=== PATIENT | female | born 2000 | race Caucasian/White ===

== ENCOUNTER 2020-08-05 12:48 | Emergency (ER) | payer OTHER, MEDICAID ==
[~2020-08-05] VITALS: Ht 162.6 cm; Wt 63.5 kg
[2020-08-05] MEDS ORDERED: ACETIC ACID15 ML OTIC (14:37)
[2020-08-05 14:43] VITALS: BP 116/72
== END 2020-08-05 14:43 | disposition home or self-care (01) ==
LOC: M.ERS 12:48
DX: H61.21 Impacted cerumen, right ear (principal)

== ENCOUNTER 2020-10-15 14:48 | Emergency (ER) | payer OTHER, MEDICAID ==
[~2020-10-15] VITALS: Ht 162.6 cm; Wt 61.2 kg
[~2020-10-15 14:48] MED LIST: ACETIC ACID15 ML OTIC
[2020-10-15 15:32] LABS: ABSOLUTE LYMPHOCYTES 0.9 thou/uL (0.8-5.3); ABSOLUTE MONOCYTES 0.3 thou/uL (0.0-1.2); ABSOLUTE NEUTROPHILS 6.7 thou/uL (1.6-8.1); BASOPHILS 0.4 %; EOSINOPHILS 0.1 %; HEMATOCRIT 40.6 % (37.0-47.0); HEMOGLOBIN 13.4 gm/dL (12.0-15.0); MCH 28.8 pg (26.0-34.0); MCHC 33.1 g/dL (28.0-37.0); MONOCYTES 4.3 %; MPV 8.7 fl. (7.2-11.1); NUCLEATED RBCS 0 /100WBC; PLATELET COUNT* 271 thou/uL (150-400); POLYS 84.2 %; RBC 4.66 mil/uL (4.20-5.00); RDW-CV 14.6 % (10.5-14.5); WBC 7.9 thou/uL (4.0-11.0)
[2020-10-15 15:47] LABS: CALCIUM 8.6 mg/dL (8.5-10.1); CREATININE 0.9 mg/dL (0.6-1.3)
[2020-10-15 15:51] LABS: ALBUMIN 4.3 g/dL (3.4-5.0); TOTAL BILIRUBIN 1.4 mg/dL (<0.1-1.0)
[2020-10-15 15:55] LABS: POTASSIUM 2.9 mmol/L (3.5-5.1)
[2020-10-15 16:07] LABS: URINE BILIRUBIN NEGATIVE (Negative); URINE BLOOD NEGATIVE (Negative); URINE CLARITY CLEAR; URINE COLOR YELLOW; URINE GLUCOSE-RANDOM NEGATIVE (Negative); URINE KETONES 1+ (Negative); URINE LEUKOCYTES-REFLEX NEGATIVE (Negative); URINE NITRITE-REFLEX NEGATIVE (Negative); URINE PROTEIN NEGATIVE (Negative); URINE UROBILINOGEN 0.2 E.U./dl (0.2-1.0)
[2020-10-15 16:16] LABS: AMP/METHAMP Negative (Negative); BARBITURATES Negative (Negative); BENZODIAZEPINES Negative (Negative); COCAINE Negative (Negative); METHADONE Negative (Negative); OPIATES Negative (Negative); PCP Negative (Negative); THC POSITIVE (Negative)
[2020-10-15] MEDS ORDERED: PHENERGAN 25 MG25 M1 PO (16:51)
[2020-10-15] MEDS ORDERED: PROMS25 WY RECTAL (16:51)
[2020-10-15 17:06] VITALS: BP 131/71
== END 2020-10-15 16:55 | disposition home or self-care (01) ==
LOC: M.ERS 14:48
PROVIDERS: Nurse Practitioner Family
DX: R11.15 Cyclical vomiting syndrome unrelated to migraine (principal); E87.6 Hypokalemia; F12.90 Cannabis use, unspecified, uncomplicated; Z79.899 Other long term (current) drug therapy